=== PATIENT | female | born 1995 | race Caucasian/White ===

== ENCOUNTER 2016-10-25 11:33 | Emergency (ER) | payer MEDICAID ==
[~2016-10-25] VITALS: Ht 152.4 cm; Wt 46.0 kg
[2016-10-25] MEDS ORDERED: SODIUM CHLORIDE 0.9% 1,000 ML IV ONE (19:00)
[2016-10-25 19:36] LABS: CLARITY URINE TURBID (CLEAR); COLOR URINE YELLOW (YELLOW); GLUCOSE URINE NEGATIVE (NEGATIVE); KETONES URINE TRACE (NEGATIVE); LEUKOCYTE ESTERASE URINE 3+ (NEGATIVE); NITRITE URINE NEGATIVE (NEGATIVE); OCCULT BLOOD URINE 3+ (NEGATIVE); PH URINE 6.5 (4.5-8.0); PROTEIN URINE 2+ (NEGATIVE); SPECIFIC GRAVITY URINE 1.021 (1.005-1.030)
[2016-10-25 20:13] LABS: HCG SCREEN NEGATIVE
[2016-10-25] MEDS ORDERED: KETOROLAC 30MG/ML VIAL IV ONE (20:15)
[2016-10-25 21:15] VITALS: BP 109/62
== END 2016-10-25 21:15 | disposition home or self-care (01) ==
LOC: ER 17:54
DX: N39.0 Urinary tract infection, site not specified (principal)
CPT/HCPCS: 81001; 84703; 96360; 96361; 99285; J7030; Z7610